=== PATIENT | male | born 1995 | race Caucasian/White ===

== ENCOUNTER 2018-07-06 09:43 | Emergency (ER) | payer MEDICAID, OTHER ==
[~2018-07-06] VITALS: Ht 167.6 cm; Wt 77.1 kg
[2018-07-06 10:04] VITALS: BP 123/84
--- NOTE | 2018-07-06 10:06 | NUR ---
TO LOBBY A/W BED, AMBULATORY, VSS, MARII NOTED
--- NOTE | 2018-07-06 11:45 | NUR ---
PT AMBULATED TO BED 12, PLACED IN GOWN AND URINE SPECIMEN OBTAINED, PLACED ON FULL MONITOR.
--- NOTE | 2018-07-06 11:51 | NUR ---
PT C/O GENERAL ABDOMINAL PAIN 7/10 AND NVD, STARTING LAST NIGHT. ABDOMEN ROUND, SOFT, TENDER TO PALPATION X 4 QUADRANTS. LBM 07/06/18. SKIN IS INTACT, PINK/WARM/DRY; AAOX4, PERRL, WITH EVEN AND STEADY GAIT; LUNGS CLEAR BL, BREATHING UNLABORED; HR EVEN AND REGULAR, BL PERIPHERAL PULSES PRESENT; BS ACTIVE X4, NO TENDERNESS TO PALPATION, NO HEPATOSPLENOMEGALLY PALPATED, RESONANT TO PERCUSSION; PT DENIES ANY FEVER, CP, SOB, OR COUGH AT THIS TIME; PT STATES 7/10 PAIN AT THIS TIME; VSS; PATIENT POSITIONED FOR COMFORT; HOB ELEVATED; BEDRAILS UP X2; BED DOWN, PLACED ON FULL MONITOR.
--- NOTE | 2018-07-06 13:00 | NUR ---
PT ON STRETCHER IN SUPINE POSITION RESPIRATIONS E/U, NO COMPLAINTS OF CHEST PAIN/SOB, GCS 15. FULL MONITOR ON, BED RAILS UP, BED IN LOW POSITION. NO IDENTIFIED REQUESTS AT THIS TIME.
[2018-07-06] MEDS ORDERED: KETOROLAC 60 MG/2 ML VIAL IM ONE (13:45)
[2018-07-06] MEDS ORDERED: LACTULOSE 20 GM/30 ML UDC PO ONE (13:45)
[2018-07-06] MEDS ORDERED: DICYCLOMINE HCL LIQUID 10 MG/5 ML UDC PO ONE (13:45)
--- NOTE | 2018-07-06 15:00 | NUR ---
PT AMBULATED TO RESTROOM AT THIS TIME WITHOUT INCIDENCE
[2018-07-06 15:21] LABS: BILIRUBIN,URINE NEGATIVE (NEGATIVE); BLOOD, URINE NEGATIVE (NEGATIVE); COLOR,URINE YELLOW (YELLOW); LEUKOCYTE ESTERASE ,URINE NEGATIVE (NEGATIVE); NITRITE, URINE NEGATIVE (NEGATIVE); UGLUCOSE NEGATIVE (NEGATIVE)
[2018-07-06 15:22] LABS: APPEARANCE,URINE CLOUDY (CLEAR)
[2018-07-06 15:24] LABS: RBC,URINE 0-5 (RARE) /HPF (0-5); URINE AMORPHOUS URATE 4+ /HPF (None Seen); WBC,URINE 0-5 (RARE) /HPF (0-5)
--- NOTE | 2018-07-06 16:00 | NUR ---
PT FOUND TO HAVE ELOPED FROM ROOM, EDMD AWARE
--- NOTE | 2018-07-06 16:25 | NUR ---
PT FOUND RETURNED TO ROOM, EDMD AWARE
[2018-07-06 16:38] VITALS: BP 125/77
--- NOTE | 2018-07-06 16:38 | NUR ---
Patient discharged with v/s stable. Written and verbal after care instructions given and explained. Patient alert, oriented and verbalized understanding of instructions. Ambulatory with steady gait. All questions addressed prior to discharge. ID band removed. Patient advised to follow up with PMD. Rx of COLACE given. Patient educated on indication of medication including possible reaction and side effects. Opportunity to ask questions provided and answered.
== END 2018-07-06 16:38 | disposition home or self-care (01) ==
LOC: MED 09:43
DX: K59.00 Constipation, unspecified (principal); I10 Essential (primary) hypertension; F17.210 Nicotine dependence, cigarettes, uncomplicated
CPT/HCPCS: 74018; 81001; 96372; 99284; J1885

== ENCOUNTER 2019-08-01 10:02 | Emergency (ER) | payer OTHER ==
[~2019-08-01] VITALS: Ht 165.1 cm; Wt 79.4 kg
[2019-08-01 10:14] VITALS: BP 134/76
--- NOTE | 2019-08-01 10:18 | NUR ---
TRIAGE COMPLETE. VSS. TO LOBBY AWAITNG BED IN ED.
--- NOTE | 2019-08-01 12:00 | NUR ---
C/O GENERALIZED ABD PAIN, N/V/D X2 DAYS. PT DENIES FEVER. PT REPORTS EATING SHRIMP/FISH THAT WAS "COOKED" IN LEMON JUICEPRIOR TO SYMPTOMS. PT DENIES BLOOD IN FECES/VOMIT. RECENT TRAVEL TO [place] X3 WEEKS AGO. BOWEL SOUNDS PRESENT X4, ABD SOFT FLAT AND NON TENDER. LBM TODAY AND "RUNNY/WATERY". 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 BED IN LOW POSITION, SIDE RAIL UP X1.
[2019-08-01] MEDS ORDERED: ONDANSETRON 4 MG ODT PO ONE (12:15)
[2019-08-01 13:44] VITALS: BP 112/79
--- NOTE | 2019-08-01 13:45 | NUR ---
Patient discharged with v/s stable. Written and verbal after care instructions given and explained. Patient alert, oriented and verbalized understanding of instructions. Ambulatory with steady gait. All questions addressed prior to discharge. ID band removed. Patient advised to follow up with PMD. Rx of CIPRO, ZOFRAN, MOTRIN, IMMODIUM given. Patient educated on indication of medication including possible reaction and side effects. Opportunity to ask questions provided and answered.
== END 2019-08-01 13:45 | disposition home or self-care (01) ==
LOC: MED 10:02
DX: R19.7 Diarrhea, unspecified (principal); R10.13 Epigastric pain; I10 Essential (primary) hypertension; F17.210 Nicotine dependence, cigarettes, uncomplicated
CPT/HCPCS: 99283; Q0162

== ENCOUNTER 2019-11-22 10:05 | Emergency (ER) | payer OTHER ==
[~2019-11-22] VITALS: Ht 165.1 cm; Wt 81.6 kg
[2019-11-22 10:06] VITALS: BP 145/80
--- NOTE | 2019-11-22 10:24 | NUR ---
24 Y/O MALE PRESENTS TO ER WITH C/O LEFT FOOT PAIN S/P BOX FALLING ON FOOT YESTERDAY AT WORK. PT STATES BOX FELL ON HIS LEFT THIGH AND THEN ONTO HIS LEFT ANKLE, CAUSING HIS FOOT TO SPASM. PT STATES HE ONLY ABLE TO BEAR PARTIAL WEIGHT ON FOOT AND ANY FOOT FLEXION CAUSES 9/10 PAIN. NO OBVIOUS DEFORMITY NOTED AT THIS TIME. SKIN INTACT. PEDAL PULSES PRESENT ON LEFT FOOT. NO SWELLING NOTED. CMS+ NKA
[2019-11-22 11:45] VITALS: BP 124/75
== END 2019-11-22 11:43 | disposition home or self-care (01) ==
LOC: MED 10:05
DX: S90.02XA Contusion of left ankle, initial encounter (principal); M79.672 Pain in left foot; W20.8XXA Other cause of strike by thrown, projected or falling object, initial encounter; Y93.89 Activity, other specified; Y92.89 Other specified places as the place of occurrence of the external cause; Y99.8 Other external cause status
CPT/HCPCS: 73610; 73630; 99284